=== PATIENT | female | born 1960 | race Caucasian/White ===

== ENCOUNTER 2018-06-27 06:42 | Day surgery (SDC) | payer OTHER ==
[2018-06-26 14:39] VITALS: BMI 27.4
[2018-06-27] MEDS ORDERED: MIDAZOLAM HCL 2 MG/2 ML SINGLE DOSE VIAL ONE (07:55)
[2018-06-27] MEDS ORDERED: ONDANSETRON 4 MG/2 ML VIAL IVPUSH PRN (07:59)
[2018-06-27] MEDS ORDERED: oxyCODONE HCL 5 MG TABLET PO PRN (07:59)
[2018-06-27] MEDS ORDERED: IBUPROFEN 600 MG TABLET (FP) PO PRN (07:59)
[2018-06-27] MEDS ORDERED: IBUPROFEN 800 MG/8 ML IJ IVPB PRN (07:59)
--- NOTE | 2018-06-27 07:59 | HP ---
Admitting History and Physical - Primary Care Physician PCP: Aggie Fagan - Admission Chief Complaint: 57yoP2 with persistent JUSTICE 1 and thick endometrium History of Present Illness: 1. Persistent JUSTICE 1/HPV pos - smoker 2. Thick Endometrium Limitations to Obtaining History: No Limitations - Past Medical History Reproductive: Yes: Postmenopausal, Other (Persistent JUSTICE 1/HPV pos) ...LMP: 04/26/12 Rheumatology: Yes: Other (Hip arsthritis) - Past Surgical History Past Surgical History: Yes: Tubal Ligation Additional Past Surgical History: 1. Uretheral Diverticulectomy 2. Polinoidal cyst drainage 3. Abdominoplasty 4. Breast surgery - Smoking History Smoking history: Current every day smoker Have you smoked in the past 12 months: Yes Aproximately how many cigarettes per day: 6 - Alcohol/Substance Use Hx Alcohol Use: Yes (2 times per week) History of Substance Use: reports: None - Social History History of Recent Travel: No Home Medications - Allergies Allergies/Adverse Reactions: Allergies Allergy/AdvReac Type Severity Reaction Status Date / Time No Known Allergies Allergy Verified 06/26/18 14:21 - Home Medications Home Medications: Ambulatory Orders Ergocalciferol (Vitamin D2) [Vitamin D2] 2,000 unit PO DAILY 06/26/18 Ibuprofen [Motrin -] 600 mg PO TID #21 tablet 06/27/18 Family Disease History - Family Disease History Other Family History: Kidney dz and Diabetis Review of Systems - Review of Systems Constitutional: reports: No Symptoms Eyes: reports: No Symptoms HENT: reports: No Symptoms Neck: reports: No Symptoms Cardiovascular: reports: No Symptoms Respiratory: reports: No Symptoms Gastrointestinal: reports: No Symptoms Genitourinary: reports: No Symptoms Breasts: reports: No Symptoms Reported Musculoskeletal: reports: No Symptoms Integumentary: reports: No Symptoms Neurological: reports: No Symptoms Endocrine: reports: No Symptoms Hematology/Lymphatic: reports: No Symptoms Psychiatric: reports: No Symptoms Physical Examination Vital Signs: Vital Signs Temperature 98.4 F 06/27/18 07:00 Pulse Rate 76 06/27/18 07:00 Respiratory Rate 18 06/27/18 07:00 Blood Pressure 130/91 06/27/18 07:00 O2 Sat by Pulse Oximetry (%) 97 06/27/18 07:00 Constitutional: Yes: Well Nourished, No Distress, Calm Eyes: Yes: WNL HENT: Yes: WNL Neck: Yes: WNL Cardiovascular: Yes: WNL, Regular Rate and Rhythm Respiratory: Yes: WNL, Regular, CTA Bilaterally Gastrointestinal: Yes: WNL, Normal Bowel Sounds, Soft Renal/: Yes: WNL Breast(s): Yes: WNL Musculoskeletal: Yes: WNL Extremities: Yes: WNL Edema: No Integumentary: Yes: WNL Neurological: Yes: WNL, Alert, Oriented ...Motor Strength: WNL Psychiatric: Yes: WNL, Alert, Oriented Imaging - Results Ultrasound: Report Reviewed (04/15/18 - Endometrium 9.4mm, c/w Endomerial fibroid or polyp; rest of the study unremarkable) Assessment/Plan 57yo P2 with persistent JUSTICE 1, difficulty evaluating endocervix, Thick Endometrium, likely Submucosal fibroid or polyp for Hysteroscopy/Polypectomy/Myomectomy/ECC Consent signed, risks, benefits, alternatives discussed, all questions answered
[2018-06-27] MEDS ORDERED: ELECTROLYTE-148 SOLN 1,000 ML IV SCH (08:00)
[2018-06-27] MEDS ORDERED: PROPOFOL 20 ML ONE ×2 (08:01)
[2018-06-27] MEDS ORDERED: SUCCINYLCHOLINE CHLORIDE 200 MG/10 ML VIAL ONE (08:02)
--- NOTE | 2018-06-27 08:03 | OP ---
Operative Note - Note: Operative Date: 06/27/18 Pre-Operative Diagnosis: 57yo P2 with thick Endometrium and persistent JUSTICE 1 Operation: Hysteroscopy/Polypectomy/D&C/ECC Findings: 1. 1cm anterior wall polyp 2. 1cm left lateral wall polyp Post-Operative Diagnosis: Same as Pre-op Surgeon: Aggie Fagan Anesthesiologist/MARKETING DATABASE COORDINATOR: Ary Porter MD Anesthesia: MAC Estimated Blood Loss (mls): 0 Drains & Tubes with Location: 60cc fluid deficit Drains, Volume Out (mls): 50 Fluid Volume Replaced (mls): 400 Operative Report Dictated: Yes
[2018-06-27] MEDS ORDERED: ePHEDrine SULFATE 50 MG/1 ML AMPULE ONE (08:23)
[2018-06-27 10:16] VITALS: TEMP 97.8
[2018-06-27 11:49] VITALS: BP 117/72; PULSE 90
--- NOTE | 2018-06-27 20:16 | OP ---
DATE OF OPERATION: 06/27/2018 PREOPERATIVE DIAGNOSIS: A 57-year-old, para 2, with thick endometrium and persistent JUSTICE-1. OPERATION: Hysteroscopy, polypectomy, dilation and curettage, and endocervical curettage. FINDINGS: A 1 cm anterior wall polyp and 1 cm left lateral wall polyp. POSTOPERATIVE DIAGNOSIS: A 57-year-old, para 2, with thick endometrium and persistent JUSTICE-1. SURGEON: Aggie Fagan MD ANESTHESIOLOGIST: Ary Porter MD ANESTHESIA: MAC. DESCRIPTION OF THE OPERATIVE PROCEDURE: After assuring informed consent, patient was brought to the operating room, where she was placed in dorsal lithotomy position. Perineum and vagina were prepped and draped in sterile fashion. A Symphion hysteroscope was assembled, primed, and wide balanced. The Bailey retractors were placed into the vagina. Anterior cervical lip was articulated with single-tooth tenaculum. Cervix was dilated with gradually increasing in size dilators to accommodate 6-mm hysteroscope. Hysteroscope was placed atraumatically through the cervix into the uterus. The anterior wall 1-cm polyp was noted and left lateral wall polyp was noted as well. The Symphion resectoscope was introduced through the operative port and both polyps were resected atraumatically without any difficulty. Excellent hemostasis achieved. The hysteroscope was removed and endometrial curettage and endocervical curettage was performed. All instruments were removed from the uterus, cervix, and the vagina. Estimated blood loss was 0 mL. Patient received 400 mL of IV fluid. Urine output was 50 mL and fluid deficit was 60 mL. Instrument and sponge count was correct x2. Patient tolerated procedure well and was brought to the recovery room in stable condition. Gianni [id number]
--- NOTE | 2018-06-28 18:32 | PATH ---
Surgical Pathology Report Patient Name: AMAN EARLY [facility]. Rec. #: [id number] /Age/Gender: 1960 (Age: 57) / F Account: [id number] Location: [facility] SURGICAL Taken: 06/27/2018 Received: 06/27/2018 Reported: 06/28/2018 Physicians: Aggie Fagan M.D. Specimen(s) Received A: CERVICAL POLYP B: ENDOCERVICAL CURETTINGS Clinical History Endometrial thickening Final Diagnosis A. CERVICAL POLYPS, DILATION AND CURETTAGE: FRAGMENTS OF MIXED ENDOMETRIAL/CERVICAL POLYP, LOWER UTERINE SEGMENT, AND BENIGN ECTOCERVICAL SQUAMOUS MUCOSA. B. ENDOCERVICAL CURETTINGS, DILATION AND CURETTAGE: SCANT BENIGN CERVICAL TISSUE. Electronically Signed Amparo Gonzalez M.D. Gross Description A. Received in formalin labeled "cervical polyps" are multiple fragments of pink-patrick tissue measuring 0.5 x 0.4 x 0.3 cm in aggregate. Entire specimen submitted in one cassette. B. Received in formalin labeled "endocervical curettings" are multiple fragments of pink-patrick hemorrhagic tissue measuring 0.7 x 0.7 x 0.3 cm in aggregate. Entire specimen submitted in one cassette. MLSZ/06/27/2018 [email or web address]/06/27/2018
== END 2018-06-27 11:30 | disposition home or self-care (01) ==
LOC: JASU-SURG 06:42
PROVIDERS: ATTEND Obstetrics & Gynecology
PROC: 0UDB7ZX Extraction of Endometrium, Via Natural or Artificial Opening, Diagnostic (ICD-10-PCS; 2018-06-27)
PROC: 0UJD8ZZ Inspection of Uterus and Cervix, Via Natural or Artificial Opening Endoscopic (ICD-10-PCS; 2018-06-27)
PROC: 0UBC7ZX Excision of Cervix, Via Natural or Artificial Opening, Diagnostic (ICD-10-PCS; principal; 2018-06-27 07:30)
PROC: 0UB97ZX Excision of Uterus, Via Natural or Artificial Opening, Diagnostic (ICD-10-PCS; 2018-06-27 07:30)
DX: N87.0 Mild cervical dysplasia (principal); N84.0 Polyp of corpus uteri
CPT/HCPCS: 88305-TC; 94760